=== PATIENT | female | born 1980 | race Caucasian/White ===

== ENCOUNTER 2021-10-19 11:50 | Emergency (ER) | payer SELFPAY ==
[~2021-10-19] VITALS: Ht 172.7 cm; Wt 98.0 kg
[2021-10-19] MEDS ORDERED: KETOROLAC 60MG/2ML VIAL IM ONE (12:15)
[2021-10-19 12:32] VITALS: BP 160/62
[2021-10-19] MEDS ORDERED: TOPUD PO (12:59)
== END 2021-10-19 13:06 | disposition home or self-care (01) ==
LOC: ER 11:50
DX: M79.18 Myalgia, other site (principal); M54.50 Low back pain, unspecified
CPT/HCPCS: 71045; 93005; 96372; 99283; J1885